=== PATIENT | female | born 1950 | race Two or more races ===

== ENCOUNTER 2021-01-23 20:07 | Emergency (ER) | payer OTHER ==
[~2021-01-23] VITALS: Ht 149.9 cm; Wt 61.2 kg
[2021-01-23 20:45] LABS: Urine Bacteria FEW /hpf (None Seen); Urine WBC 83 /hpf (0 - 5)
[2021-01-23 20:51] LABS: Urine Blood Normal /uL (Negative)
[2021-01-23 23:22] VITALS: BP 127/67
== END 2021-01-24 01:04 | disposition home or self-care (01) ==
LOC: ER 20:10
DX: N39.0 Urinary tract infection, site not specified (principal); E11.9 Type 2 diabetes mellitus without complications; I10 Essential (primary) hypertension
CPT/HCPCS: 81001

== ENCOUNTER → 2021-11-15 | Outpatient (CLI) | payer OTHER | END | disposition home or self-care (01) | LOC: XYW 08:04 | PROVIDERS: ATTEND Internal Medicine | DX: I08.1 Rheumatic disorders of both mitral and tricuspid valves (principal); R07.9 Chest pain, unspecified | CPT/HCPCS: 93306 ==